=== PATIENT | female | born 1970 | race Caucasian/White ===

== ENCOUNTER 2019-10-28 12:47 | Emergency (ER) | payer BC, OTHER ==
[2019-10-28 12:57] VITALS: TEMP 98
[2019-10-28] MEDS: KETOROLAC 60 MG/2 ML VIAL IM STA ×2 (13:14→13:54)
--- NOTE | 2019-10-28 13:19 | ED ---
General Adult HPI - General Chief complaint: Fall Stated complaint: Fall Time Seen by Provider: 10/28/19 12:50 Source: patient, RN notes reviewed, old records reviewed Mode of arrival: EMS Limitations: no limitations - History of Present Illness Initial comments: This is a 49-year-old female who presents emergency Department who presents emergency department after having fallen down the steps and hit her ribs on the steps and she went down. Patient states it hurts in the left posterior rib area just below the scapula. Patient denies any neck pain. Patient denies hitting her head. Patient denies any extremity pain. Patient denies any chest pain. Patient denies any abdominal pain or lower back pain. Patient denies any numbness or weakness. - Related Data Home Medications Medication Instructions Recorded Confirmed Venlafaxine HCl ER [Effexor Xr] 150 mg PO DAILY 09/25/16 09/29/16 Previous Rx's Medication Instructions Recorded Ibuprofen [Motrin] 600 mg PO Q6HR PRN #20 tab 10/28/19 Allergies Allergy/AdvReac Type Severity Reaction Status Date / Time Penicillins Allergy Rash/Hives Verified 10/28/19 12:56 Sulfa (Sulfonamide Allergy Rash/Hives Verified 10/28/19 12:56 Antibiotics) Review of Systems ROS Statement: Those systems with pertinent positive or pertinent negative responses have been documented in the HPI. ROS Other: All systems not noted in ROS Statement are negative. Past Medical History Past Medical History: No Reported History Additional Past Medical History / Comment(s): crampy abd pain & rectal bleeding for a day about 2 weeks ago History of Any Multi-Drug Resistant Organisms: None Reported Past Surgical History: No Surgical Hx Reported Additional Past Anesthesia/Blood Transfusion Reaction / Comment(s): never had anesthesia, no family problems with Past Psychological History: Depression Smoking Status: Current every day smoker Past Alcohol Use History: None Reported Past Drug Use History: None Reported - Past Family History Mother Family Medical History: No Reported History General Exam - General Exam Comments Initial Comments: GENERAL: Patient is well-developed and well-nourished. Patient is nontoxic and well- hydrated and is in moderate distress. ENT: Neck is soft and supple. No significant lymphadenopathy is noted. Oropharynx is clear. Moist mucous membranes. Neck has full range of motion without eliciting any pain. EYES: The sclera were anicteric and conjunctiva were pink and moist. Extraocular movements were intact and pupils were equal round and reactive to light. Eyelids were unremarkable. PULMONARY: Unlabored respirations. Good breath sounds bilaterally. No audible rales rhonchi or wheezing was noted. CARDIOVASCULAR: There is a regular rate and rhythm without any murmurs gallops or rubs. Patient has some rib tenderness in the posterior left thoracic region just below the scapula. ABDOMEN: Soft and nontender with normal bowel sounds. No palpable organomegaly was noted. There is no palpable pulsatile mass. SKIN: Skin is clear with no lesions or rashes and otherwise unremarkable. NEUROLOGIC: Patient is alert and oriented x3. Cranial nerves II through XII are grossly intact. Motor and sensory are also intact. Normal speech, volume and content. Symmetrical smile. MUSCULOSKELETAL: Normal extremities with adequate strength and full range of motion. No lower extremity swelling or edema. No calf tenderness. LYMPHATICS: No significant lymphadenopathy is noted PSYCHIATRIC: Normal psychiatric evaluation. Limitations: no limitations Course Vital Signs 10/28/19 12:50 Temperature 98 F Pulse Rate 98 Respiratory 18 Rate Blood Pressure 144/94 O2 Sat by Pulse 98 Oximetry Medical Decision Making - Medical Decision Making Chest x-ray and thoracic spine x-ray showed no acute abnormality. Patient refused Toradol shot. Patient had no other complaints of pain other than the posterior left ribs. Though there were no obvious rib fractures I am calling the patient a clinical rib fracture. Disposition Clinical Impression: Fall, Rib fracture Disposition: HOME SELF-CARE Condition: Good Instructions (If sedation given, give patient instructions): Fall Prevention (ED), Rib Fracture (ED) Additional Instructions: Patient is to take 10 deep breaths per hour. Patient is to take Motrin as prescribed. Prescriptions: Ibuprofen [Motrin] 600 mg PO Q6HR PRN #20 tab PRN Reason: For pain Is patient prescribed a controlled substance at d/c from ED?: No Referrals: Joe Leahy DO [Primary Care Provider] - 1-2 days Time of Disposition: 14:10
--- NOTE | 2019-10-28 13:39 | XR ---
EXAMINATION TYPE: XR chest 2V DATE OF EXAM: 10/28/2019 HISTORY: Difficulty breathing . REFERENCE: NONE. FINDINGS: The lungs are clear. Pleural space are clear. The heart is not enlarged. I do not see evide nce of pneumothorax. IMPRESSION: NO ACUTE CARDIOPULMONARY ABNORMALITY
--- NOTE | 2019-10-28 13:40 | XR ---
EXAMINATION TYPE: XR thoracic spine 2V , 4 VIEWS DATE OF EXAM ORDERED: 10/28/2019 HISTORY: Fall . COMPARISON: None. FINDINGS: Vertebral body height and alignment are maintained. There is degenerative disc disease and hypertrophic spondylosis within the dorsal spine. IMPRESSION: NO ACUTE OSSEOUS LESION.
[2019-10-28 14:28] VITALS: BP 148/74; PULSE 89; RESP 16
== END 2019-10-28 14:27 | disposition home or self-care (01) ==
LOC: EC 12:47
DX: S22.31XA Fracture of one rib, right side, initial encounter for closed fracture (principal); F32.9 Major depressive disorder, single episode, unspecified; F17.200 Nicotine dependence, unspecified, uncomplicated; Z88.0 Allergy status to penicillin; Z88.2 Allergy status to sulfonamides; Z79.899 Other long term (current) drug therapy; W10.9XXA Fall (on) (from) unspecified stairs and steps, initial encounter; Y93.H1 Activity, digging, shoveling and raking; Y92.009 Unspecified place in unspecified non-institutional (private) residence as the place of occurrence of the external cause; Z53.20 Procedure and treatment not carried out because of patient's decision for unspecified reasons
CPT/HCPCS: 71046; 72070; 99284

== ENCOUNTER → 2019-11-03 | Outpatient (CLI) | payer BC ==
--- NOTE | 2019-11-03 11:31 | XR ---
EXAMINATION TYPE: XR ribs LT w pa chest xray DATE OF EXAM: 11/03/2019 COMPARISON: NONE HISTORY: Pain TECHNIQUE: 5 views submitted FINDINGS: Subsegmental consolidation tiny left effusion suspected. There is a displaced fracture of the left se venth and eighth rib. No sizable pneumothorax. Report called to referring clinician. IMPRESSION: 1. Displaced fractures left seventh and eighth ribs with no pneumothorax area however, there is a lef t-sided consolidation and small pleural effusion. A Weld level critical message alert has been initiated for GUEVARA Ni via the [employer] Critical Results System on 11/03/2019 11:23 AM. This message alert has been sent to GUEVARA Ni via the preferences provided by the clinician for the receipt of Radiology Critical Fi ndings. Message ID [id number].
== END | disposition home or self-care (01) ==
LOC: RADXRYALE 11:08
PROVIDERS: ATTEND Physician Assistant Medical
DX: S22.42XA Multiple fractures of ribs, left side, initial encounter for closed fracture (principal); J90 Pleural effusion, not elsewhere classified

== ENCOUNTER → 2019-11-10 | Outpatient (CLI) | payer BC ==
--- NOTE | 2019-11-10 14:35 | XR ---
Left RIBS HISTORY: Trauma and pain 4 views of the left ribs The left seventh and eighth ribs again show displaced fractures, cortical irregularity noted at the f ifth and sixth ribs. No pneumothorax or pleural effusion. Question some basilar subsegmental atelecta tic change. IMPRESSION: Patient with known left-sided seventh and eighth rib fractures, additional findings above .
--- NOTE | 2019-11-10 14:38 | XR ---
EXAMINATION TYPE: XR chest 2V DATE OF EXAM: 11/10/2019 COMPARISON: Left RIBS same date HISTORY: Rib fractures, trauma and pain TECHNIQUE: Frontal and lateral views of the chest are obtained. FINDINGS: There is no evident pneumothorax or pleural effusion. Minimal subsegmental basilar atelect atic changes are present on the left. The left-sided rib fracture to 6 and seventh ribs laterally are noted with some displacement. Heart is within normal limits. IMPRESSION: Left-sided rib fractures with possible atelectasis or scarring.
== END | disposition home or self-care (01) ==
LOC: RADXRYALE 11:07
PROVIDERS: ATTEND Physician Assistant Medical
DX: S22.42XA Multiple fractures of ribs, left side, initial encounter for closed fracture (principal)
CPT/HCPCS: 71046

== ENCOUNTER → 2020-09-26 | Outpatient (CLI) | payer BC ==
--- NOTE | 2020-09-30 09:38 | MM ---
Reason for exam: screening (asymptomatic). Last mammogram was performed 4 years and 7 months ago. History: Family history of breast cancer in maternal aunt. Physical Findings: A clinical breast exam by your physician is recommended on an annual basis and results should be correlated with mammographic findings. MG 3D Screening Mammo W/Cad Bilateral CC and MLO view(s) were taken. Prior study comparison: February 18, 2016, bilateral MG 3d screening mammo w/cad. September 18, 2014, bilateral MG screening mammo w CAD. The breast tissue is heterogeneously dense. This may lower the sensitivity of mammography. No significant changes when compared with prior studies. ASSESSMENT: Benign, BI-RAD 2 RECOMMENDATION: Routine screening mammogram of both breasts in 1 year.
== END | disposition home or self-care (01) ==
LOC: RADMAMWWP 08:03
PROVIDERS: ATTEND Obstetrics & Gynecology
DX: Z12.31 Encounter for screening mammogram for malignant neoplasm of breast (principal)
CPT/HCPCS: 77063; 77067

== ENCOUNTER → 2023-08-10 | Outpatient (CLI) | payer BC ==
--- NOTE | 2023-08-11 09:09 | MM ---
Reason for Exam: Screening (asymptomatic). Last mammogram was performed 2 year(s) and 10 month(s) ago. Patient History: Menarche at age 11. First Full-Term at age 17. Maternal aunt had breast cancer. Risk Values: Kelley 5 year model risk: 0.8%. NCI Lifetime model risk: 6.1%. Prior Study Comparison: 09/18/2014 Bilateral Screening Mammogram, [facility]. 02/18/2016 Bilateral Screening Mammogram, [facility]. 09/26/2020 Bilateral Screening Mammogram, [facility]. Tissue Density: The breast tissue is heterogeneously dense. This may lower the sensitivity of mammography. Findings: Analyzed By CAD. There is no suspicious group of microcalcifications or new suspicious mass. Overall Assessment: Negative, BI-RAD 1 Management: Screening Mammogram of both breasts in [address] [facility] will attempt to contact patient to return for supplemental views and ultrasound if indicated. Patient should continue monthly self-breast exams. A clinical breast exam by your physician is recommended on an annual basis. This exam should not preclude additional follow-up of suspicious palpable abnormalities. Note on Kelley scores and lifetime risk: 1. A Kelley score greater than 3% is considered moderate risk. If this is the case, consider specialist referral to assess eligibility for a risk reducing agent. 2. If overall lifetime risk for the development of breast cancer is 20% or higher, the patient may qualify for future screening with alternating mammogram and breast MRI. Electronically signed and approved by: Primo Aranda DO
== END | disposition home or self-care (01) ==
LOC: RADMAMWWP 06:57
PROVIDERS: ATTEND Obstetrics & Gynecology
DX: Z12.31 Encounter for screening mammogram for malignant neoplasm of breast (principal); Z80.3 Family history of malignant neoplasm of breast
CPT/HCPCS: 77063; 77067

== ENCOUNTER → 2024-01-04 | Outpatient (CLI) | payer BC ==
--- NOTE | 2024-01-13 13:16 | P.CEMON ---
7 Day Event monitor note: Patient wore an event monitor for 7 days from 01/04/2024 through 01/10/2024. Findings: Patient's baseline heart rate was normal sinus rhythm. There were no signficant atrial fibrillation, atrial flutter, or ventricular tachycardia episodes. There were no significant pauses greater than 2 seconds. there were 4 patient activated events which all corresponded with normal sinus rhythm Conclusions: 7 day event monitor showing normal sinus rhythm and patient activated events corresponded with normal sinus rhythm.
== END | disposition home or self-care (01) ==
LOC: RADECHMAIN 07:20
PROVIDERS: ATTEND Family Medicine
DX: R00.2 Palpitations (principal); R42 Dizziness and giddiness
CPT/HCPCS: 93270

== ENCOUNTER → 2024-12-21 | Outpatient (CLI) | payer BC ==
--- NOTE | 2024-12-22 07:19 | MM ---
Reason for Exam: Screening (asymptomatic). Last mammogram was performed 1 year(s) and 5 month(s) ago. Patient History: Menarche at age 11. First Full-Term at age 17. Maternal aunt had breast cancer. Risk Values: Kleley 5 year model risk: 0.9%. NCI Lifetime model risk: 5.9%. Prior Study Comparison: 02/18/2016 Bilateral Screening Mammogram, [facility]. 09/26/2020 Bilateral Screening Mammogram, [facility]. 08/10/2023 Bilateral MG 3D screening mammo w/cad, [facility]. Tissue Density: The breasts are heterogeneously dense, which may obscure small masses. Findings: Analyzed By CAD. There is no suspicious group of microcalcifications or new suspicious mass in either breast. Overall Assessment: Negative, BI-RAD 1 Management: Screening Mammogram of both breasts in 1 year. . Patient should continue monthly self-breast exams. A clinical breast exam by your physician is recommended on an annual basis. This exam should not preclude additional follow-up of suspicious palpable abnormalities. Note on Kelley scores and lifetime risk: 1. A Kelley score greater than 3% is considered moderate risk. If this is the case, consider specialist referral to assess eligibility for a risk reducing agent. 2. If overall lifetime risk for the development of breast cancer is 20% or higher, the patient may qualify for future screening with alternating mammogram and breast MRI. [facility], , 12/22/2024 7:16 AM. Electronically signed and approved by: Ramon Moreno M.D. Radiologis
== END | disposition home or self-care (01) ==
LOC: RADMAMWWP 16:18
PROVIDERS: ATTEND Family Medicine
DX: Z12.31 Encounter for screening mammogram for malignant neoplasm of breast (principal); R92.333 Mammographic heterogeneous density, bilateral breasts; Z80.3 Family history of malignant neoplasm of breast
CPT/HCPCS: 77063; 77067

== ENCOUNTER → 2025-02-05 | Outpatient (CLI) | payer BC ==
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
== END | disposition home or self-care (01) ==
LOC: RADXRYALE 15:10
PROVIDERS: ATTEND Physician Assistant Medical
DX: M25.561 Pain in right knee (principal); V49.59XA Passenger injured in collision with other motor vehicles in traffic accident, initial encounter